=== PATIENT | female | born 1995 | race African-American/Black ===

== ENCOUNTER 2017-07-20 19:51 | Emergency (ER) | payer OTHER ==
--- NOTE | 2017-07-20 20:07 | PDOC ---
History of Present Illness - General Stated Complaint: FEVER Time Seen by Provider: 07/20/17 20:07 - History of Present Illness Initial Comments: 22 year old previously healthy female without any significant PMH presenting with fevers and congestion for the past day. States that she didn't attempt to measure an objective fever at home but felt warm which improved with two Motrin but then returned. She had a brother with similar symptoms and an ear infection. She has some occasionally left circum-aural fullness when she feels very warm. Denies nausea, vomiting, diarrhea, cough, SOB, chest pain, neck stiffness, visual symptoms, or other sick symptoms. 07/20/17 20:33 Past History - Past Medical History Allergies/Adverse Reactions: Allergies Allergy/AdvReac Type Severity Reaction Status Date / Time No Known Allergies Allergy Verified 07/20/17 20:08 Home Medications: Ambulatory Orders Norethindrone-E.estradiol-Iron [Lo Loestrin Fe 1-10 Tablet] 1 tab PO DAILY 07/20 Review of Systems - Review of Systems Constitutional: Yes: Chills, Fever. No: Loss of Appetite, Weakness HEENTM: Yes: Tearing, Ear Pain. No: Eye Pain, Blurred Vision, Recent change in vision, Double Vision, Ear Discharge Respiratory: No: Cough, Orthopnea, Shortness of Breath, Stridor, Wheezing Cardiac (ROS): No: Chest Pain, Lightheadedness, Palpitations, Chest Tightness ABD/GI: No: Diarrhea, Nausea, Poor Appetite, Vomiting : No: Dysuria, Discharge, Hematuria, Pain Musculoskeletal: No: Neck Pain Integumentary: No: Erythema, Flushing, Lesions Neurological: Yes: Headache. No: Numbness, Paresthesia Psychiatric: No: Anxiety, Depression Endocrine: No: Intolerance to Cold Hematologic/Lymphatic: No: Anemia *Physical Exam - Physical Exam General Appearance: Yes: Nourished, Appropriately Dressed. No: Apparent Distress HEENT: positive: EOMI, ELY, Normal ENT Inspection, Normal Voice, Symmetrical, TMs Normal, Pharynx Normal Neck: positive: Trachea midline, Normal Thyroid, Supple. negative: Tender, Rigid Respiratory/Chest: positive: Lungs Clear, Normal Breath Sounds. negative: Chest Tender, Respiratory Distress, Accessory Muscle Use Cardiovascular: positive: Regular Rhythm, Tachycardia (slgihtly tachycardic). negative: Regular Rate Gastrointestinal/Abdominal: positive: Normal Bowel Sounds, Flat, Soft. negative : Tender Musculoskeletal: positive: Normal Inspection. negative: Decreased Range of Motion Extremity: positive: Normal Capillary Refill, Normal Inspection, Normal Range of Motion. negative: Tender Integumentary: positive: Normal Color, Dry, Warm Neurologic: positive: Fully Oriented, Alert, Normal Mood/Affect, Normal Response , Motor Strength 5/5 Medical Decision Making - Medical Decision Making 22 year female with fever and rhinorrhea - flu a/b negative and tachycardia/ fever improved after PO fluids and Tylenol. VSS. Will send home with Tylenol use instructions and return precautions. 07/20/17 21:06 *DC/Admit/Observation/Transfer Diagnosis at time of Disposition: Upper respiratory infection, viral - Discharge Dispostion Disposition: HOME Condition at time of disposition: Improved Admit: No - Referrals Referrals: [facility] [Provider Group] - Patient Instructions Printed Discharge Instructions: DI for Viral Upper Respiratory Infection -- Adult Additional Instructions: You do not have the flu but you might have another upper respiratory viral infection. Please use Tylenol for the fever and stay hydrated. You will improve in a few days to a week. Please follow up with the primary care physicians within a week. Return to the ED if you have any new or worsening symptoms. - Post Discharge Activity Forms/Work/School Notes: Back to Work
[2017-07-20 20:12] VITALS: BP 117/68; PULSE 102; BMI 21.7
[2017-07-20] MEDS ORDERED: ACETAMINOPHEN 325 MG TABLET (FP) PO ONE (20:14)
--- NOTE | 2017-07-20 20:15 | PDOC ---
Attending Attestation - Resident Resident Name: Mer Whiting - HPI HPI: 07/20/17 22:22 Pt presents to the Ed complaining of fever, runny nose, sore throat and generalized malaise. Also complaining of nausea without vomiting. STates that her brother is also ill. Complains of ear pain with swallowing only. - Physicial Exam PE: 07/20/17 22:23 Agree with resident exam. PAtient is febrile and mildly tachycardic but is otherwise well appearing. - Medical Decision Making 07/20/17 22:28 Pt presents to the ED complaining of generalized malaise, fever and upper respiratory symptoms. Feels improved after tylenol in the ED. Flu swab is negative. Will discharge home with follow up with PMD.
[2017-07-20] MEDS ORDERED: ACETAMINOPHEN 325 MG TABLET (FP) ONE ×3 (20:43→20:59)
[2017-07-20 22:42] VITALS: TEMP 98.8
== END 2017-07-20 23:15 | disposition home or self-care (01) ==
LOC: JER 19:51
DX: J06.9 Acute upper respiratory infection, unspecified (principal); B97.89 Other viral agents as the cause of diseases classified elsewhere
CPT/HCPCS: 84703; 87804; 99281-25

== ENCOUNTER 2021-06-11 14:40 | Emergency (ER) | payer OTHER ==
[2021-06-11 15:08] VITALS: TEMP 98.1; BMI 19.3
[2021-06-11] MEDS ORDERED: ACETAMINOPHEN 1000 MG/100 ML BAG IVPB ONE (15:24)
[2021-06-11] MEDS ORDERED: SODIUM CHLORIDE 0.9% 500 ML INFUS.BAG IV ONE (15:24)
[2021-06-11] MEDS ORDERED: ACETAMINOPHEN INJECTION 100 ML IVPB ONE (15:42)
[2021-06-11 15:49] LABS: INR 1.21 (0.83-1.09); PROTHROMBIN TIME (PATIENT) 13.9 SEC (9.7-13.0)
[2021-06-11 15:52] LABS: ACTIVATED PTT 32.4 SECONDS (25.2-36.5)
[2021-06-11 16:00] LABS: ALBUMIN 3.5 g/dl (3.4-5.0); BILIRUBIN,TOTAL 0.4 mg/dl (0.2-1); CALCIUM 8.8 mg/dl (8.5-10); CREATININE 0.5 mg/dl (0.55-1.3); TOT PROT 6.6 g/dl (6.4-8.2)
[2021-06-11 16:48] LABS: EPITHELIAL CELLS FEW /hpf
[2021-06-11 17:43] LABS: BASO % 0.8 % (0-2.0); HEMATOCRIT 23.9 % (32.4-45.2); HEMOGLOBIN 7.7 GM/dL (10.7-15.3); LYMPH % 45.2 % (8-40); MCH 27.2 pg (25.7-33.7); MCHC 32.3 g/dl (32.0-36.0); MEAN CELL VOLUME 84.4 fl (80-96); MEAN PLT VOLUME 9.5 fl (7.5-11.1); MONO % 6.2 % (3.8-10.2); NEUT % 40.8 % (42.8-82.8); PLATELET COUNT 354 10^3/uL (134-434); RBC 2.83 M/mm3 (3.60-5.2); RDW 14.4 % (11.6-15.6); WHITE BLOOD COUNT 6.8 K/mm3 (4.0-10.0)
[2021-06-11 18:02] VITALS: BP 128/77; PULSE 78
== END 2021-06-11 17:55 | disposition left against medical advice (07) ==
LOC: FER 14:40
PROC: 3E0333Z Introduction of Anti-inflammatory into Peripheral Vein, Percutaneous Approach (ICD-10-PCS; principal; 2021-06-11)
DX: O03.4 Incomplete spontaneous abortion without complication (principal)
CPT/HCPCS: 36415; 76801-TC; 80053; 81003; 81015; 84702; 85025; 85610; 85730; 86850; 86900; 86901; 87086; 93005; 96374; 99285-25; C9803; J0131; U0003; U0005

== ENCOUNTER 2021-06-12 09:42 | Emergency (ER) | payer OTHER ==
[2021-06-12 09:56] VITALS: BP 110/66; PULSE 89; TEMP 99.1; BMI 19.3
[2021-06-12 12:37] LABS: BASO % 0.6 % (0-2.0); EOS % 5.4 % (0-4.5); HEMATOCRIT 23.2 % (32.4-45.2); HEMOGLOBIN 7.5 GM/dL (10.7-15.3); LYMPH % 44.4 % (8-40); MCH 27.1 pg (25.7-33.7); MCHC 32.3 g/dl (32.0-36.0); MEAN PLT VOLUME 8.8 fl (7.5-11.1); MONO % 5.4 % (3.8-10.2); NEUT % 44.2 % (42.8-82.8); PLATELET COUNT 349 10^3/uL (134-434); RBC 2.76 M/mm3 (3.60-5.2); RDW 14.5 % (11.6-15.6); WHITE BLOOD COUNT 6.4 K/mm3 (4.0-10.0)
[2021-06-12 14:31] LABS: BLOOD UREA NITROGEN 8.6 mg/dL (7-18); CALCIUM 8.9 mg/dL (8.5-10.1)
[2021-06-12 14:32] LABS: ALBUMIN 3.4 g/dl (3.4-5.0)
[2021-06-12 14:35] LABS: CREATININE 0.6 mg/dL (0.55-1.3)
[2021-06-12 14:36] LABS: BILIRUBIN,TOTAL 0.6 mg/dL (0.2-1); TOT PROT 6.8 g/dl (6.4-8.2)
== END 2021-06-12 16:10 | disposition home or self-care (01) ==
LOC: JER 09:42
DX: O03.4 Incomplete spontaneous abortion without complication (principal); N93.9 Abnormal uterine and vaginal bleeding, unspecified
CPT/HCPCS: 36415; 80053; 84702; 85025; 86850; 86900; 86901; 99283-25

== ENCOUNTER 2021-06-17 04:39 | Day surgery (SDC) | payer OTHER ==
[2021-06-14 16:57] VITALS: BMI 21.3
[2021-06-17] MEDS ORDERED: PROPOFOL 20 ML ONE ×2 (08:54)
[2021-06-17] MEDS ORDERED: MIDAZOLAM HCL 2 MG/2 ML SINGLE DOSE VIAL ONE (08:54)
[2021-06-17] MEDS ORDERED: DOXYCYCLINE INJECTION 100 MG in DEXTROSE 5%-WATER 100 ML IVPB ONE (09:30)
[2021-06-17] MEDS ORDERED: DOXYCYCLINE HYCLATE 100 MG VIAL IVPB ONE (09:35)
[2021-06-17] MEDS ORDERED: oxyCODONE HCL 5 MG TABLET PO PRN (09:50)
[2021-06-17] MEDS ORDERED: LACTATED RINGERS SOLUTION 1,000 ML IV SCH (10:00)
[2021-06-17 12:12] VITALS: TEMP 97.5
[2021-06-17 16:14] VITALS: BP 117/56; PULSE 91
== END 2021-06-17 14:33 | disposition home or self-care (01) ==
LOC: JASU-SURG 04:39
PROVIDERS: ATTEND Student in an Organized Health Care Education/Training Program
PROC: 10D17ZZ Extraction of Products of Conception, Retained, Via Natural or Artificial Opening (ICD-10-PCS; principal; 2021-06-17 10:00)
DX: O03.4 Incomplete spontaneous abortion without complication (principal); O03.1 Delayed or excessive hemorrhage following incomplete spontaneous abortion; D64.9 Anemia, unspecified
CPT/HCPCS: 86850; 86900; 86901; 86922; 88305-TC; 94760